=== PATIENT | male | born 1990 ===

== ENCOUNTER 2019-06-05 18:23 | Emergency (ER) | payer SELFPAY ==
[~2019-06-05] VITALS: Ht 180.3 cm; Wt 86.0 kg
[2019-06-05 19:07] VITALS: BP 124/84
== END 2019-06-06 01:07 | disposition left against medical advice (07) ==
LOC: ER 18:23
DX: M54.2 Cervicalgia (principal); Z53.21 Procedure and treatment not carried out due to patient leaving prior to being seen by health care provider